=== PATIENT | male | born 1960 | race Caucasian/White ===

== ENCOUNTER → 2023-05-26 | Outpatient (CLI) | payer BC ==
[~2023-05-26] MED LIST: ATOR20 PO; B Complex #11 EACH PO; CETI10 PO; FENO145 PO; FOLI400 PO; Lovenox30 MG/0.3; NIAC500 PO; OMEP20ER PO; Prinivil10 MG PO; VITAMIN D32000 UNIT PO; WARF5 PO
[2023-05-26 12:33] LABS: International Normalized Ratio 1.1; Prothrombin Time Results 11.5 Sec (9.7-11.5)
== END | disposition home or self-care (01) ==
LOC: LAB SHORT 12:12 → LAB 12:12
PROVIDERS: Internal Medicine
DX: Z86.711 Personal history of pulmonary embolism (principal)
CPT/HCPCS: 85610

== ENCOUNTER 2023-05-27 09:32 | Day surgery (SDC) | payer BC ==
[~2023-05-27] VITALS: Ht 177.8 cm; Wt 90.7 kg
[2023-05-27 10:56] VITALS: BP 114/76
== END 2023-05-27 10:59 | disposition home or self-care (01) ==
LOC: ORSCSDS 09:32
PROVIDERS: Internal Medicine Gastroenterology
PROC: 0DBP8ZX Excision of Rectum, Via Natural or Artificial Opening Endoscopic, Diagnostic (ICD-10-PCS; principal; 2023-05-27 10:45)
DX: Z12.11 Encounter for screening for malignant neoplasm of colon (principal); Z86.010 Personal history of colon polyps; K62.1 Rectal polyp; K62.7 Radiation proctitis; K64.8 Other hemorrhoids; E11.9 Type 2 diabetes mellitus without complications; E78.00 Pure hypercholesterolemia, unspecified; G47.30 Sleep apnea, unspecified; E78.1 Pure hyperglyceridemia; K21.9 Gastro-esophageal reflux disease without esophagitis; Z79.01 Long term (current) use of anticoagulants; Z79.899 Other long term (current) drug therapy
CPT/HCPCS: 82947; 88305; J2704; J7120